=== PATIENT | female | born 1965 | race Two or more races ===

== ENCOUNTER 2017-11-10 08:39 | Outpatient (CLI) | payer OTHER ==
[~2017-11-10 08:39] MED LIST: CRESTOR5 MG; DIOVAN40 MG
== END 2017-11-10 09:00 | disposition home or self-care (01) ==
LOC: LAB 08:39
DX: E78.2 Mixed hyperlipidemia (principal); I11.9 Hypertensive heart disease without heart failure; R73.02 Impaired glucose tolerance (oral); E56.8 Deficiency of other vitamins; E55.9 Vitamin D deficiency, unspecified

== ENCOUNTER → 2020-09-24 | Day surgery (SDC) | payer OTHER | END | disposition home or self-care (01) | LOC: ADM 09-19 13:00 → AMB-ENDOS 06:45 | PROVIDERS: ATTEND Colon & Rectal Surgery | DX: K62.89 Other specified diseases of anus and rectum (principal); Z12.11 Encounter for screening for malignant neoplasm of colon; K64.8 Other hemorrhoids ==

== ENCOUNTER 2021-07-02 15:30 | Outpatient (CLI) | payer OTHER | END 2021-07-02 15:45 | disposition home or self-care (01) | LOC: PPH VACUNA 15:30 | PROVIDERS: ATTEND Emergency Medicine Pediatric Emergency Medicine | DX: Z23 Encounter for immunization (principal) ==

== ENCOUNTER 2022-01-26 08:00 | Outpatient (CLI) | payer OTHER | END 2022-01-26 08:30 | disposition home or self-care (01) | LOC: PPH VACUNA 08:00 | PROVIDERS: ATTEND Emergency Medicine Pediatric Emergency Medicine | DX: Z23 Encounter for immunization (principal) ==